=== PATIENT | male | born 1980 | race Caucasian/White ===

== ENCOUNTER 2019-03-06 10:35 | Day surgery (SDC) | payer OTHER ==
[2019-03-06 11:50] LABS: ADD MAN DIFF? NO
[2019-03-06 11:53] LABS: WHITE BLOOD COUNT 5.8 10^3/ul (4.8-10.8)
[2019-03-06 11:53] LABS: BASOPHIL # 0.1 10^3/ul (0.0-0.1); EOSINOPHILS # 0.2 10^3/ul (0.0-0.5); HEMATOCRIT 45.2 % (42.0-52.0); HEMOGLOBIN 14.9 g/dl (14.0-18.0); LYMPHOCYTES # 1.7 10^3/ul (0.8-2.9); LYMPHOCYTES % 29.9 % (15.0-51.0); MEAN CORPUSCULAR HEMOGLOBIN 27.6 pg (29.0-33.0); MEAN CORPUSCULAR VOLUME 83.7 fl (82.0-101.0); MEAN PLATELET VOLUME 9.8 fl (7.4-10.4); MONOCYTE # 0.5 10^3/ul (0.3-0.9); NEUTROPHIL # 3.3 10^3/ul (1.6-7.5); NEUTROPHILS % 57.4 % (39.0-77.0); PLATELET COUNT 282 10^3/UL (140-415); RED CELL DISTRIBUTION WIDTH 12.5 % (11.5-14.5)
[2019-03-06 12:09] LABS: ALANINE AMINOTRANSFERASE 32 IU/L (13-69); ALBUMIN 4.3 g/dl (3.3-4.9); ALBUMIN/GLOBULIN RATIO 1.26; ALKALINE PHOSPHATASE 62 IU/L (42-121); ANION GAP 9 (5-13); ASPARTATE AMINO TRANSFERASE 27 IU/L (15-46); BILIRUBIN,INDIRECT 1.3 mg/dl (0-1.1); BILIRUBIN,TOTAL 1.3 mg/dl (0.2-1.3); BLOOD UREA NITROGEN 15 mg/dl (7-20); CALCIUM 9.8 mg/dl (8.4-10.2); CARBON DIOXIDE 26 mmol/L (21-31); CHLORIDE 105 mmol/L (97-110); CREATININE 0.98 mg/dl (0.61-1.24); Estimated GFR > 60 mL/min (>60); GLUCOSE 95 mg/dl (70-220); SODIUM 140 mmol/L (135-144); TOTAL PROTEIN 7.7 g/dl (6.1-8.1)
[2019-03-06 12:25] LABS: INR 1.02; PROTIME 13.5 Sec (11.9-14.9); PT RATIO 1.1
[2019-03-06 12:26] LABS: PARTIAL THROMBOPLASTIN TIME 33.6 Sec (23.0-35.0)
[2019-03-06] MEDS ORDERED: PROPOFOL 20 ML (12:51)
[2019-03-06] MEDS ORDERED: LIDOCAINE 2% (SDV) 5 ML INJ (12:54)
[2019-03-06] MEDS ORDERED: ROCURONIUM 50 MG INJ (12:54)
[2019-03-06] MEDS ORDERED: ONDANSETRON 4 MG INJ (13:14)
[2019-03-06] MEDS ORDERED: DEXAMETHASONE 4 MG/ML 5 ML INJ (13:14)
[2019-03-06] MEDS ORDERED: NEOSTIGMINE 3 MG/3 ML SYRINGE (13:47)
[2019-03-06] MEDS ORDERED: GLYCOPYRROLATE 0.4 MG INJ (13:47)
[2019-03-06] MEDS ORDERED: ALBUTEROL 0.083% (NEB) 2.5 MG/3 ML AMP HHN (14:00)
[2019-03-06] MEDS ORDERED: EPHEDrine 25 MG/5 ML SYG IV (14:00)
[2019-03-06] MEDS ORDERED: METOCLOPRAMIDE 10 MG INJ IV (14:00)
[2019-03-06] MEDS ORDERED: ONDANSETRON 4 MG INJ IV (14:00)
[2019-03-06] MEDS ORDERED: OXYCODONE/ACETAMINOPHEN (5/325) TAB PO ×2 (14:00)
[2019-03-06] MEDS ORDERED: DIPHENHYDRAMINE 50 MG INJ IV (14:00)
[2019-03-06] MEDS ORDERED: hydrALAzine 20 MG INJ IV (14:00)
[2019-03-06] MEDS ORDERED: LABETALOL HCL 20MG INJ IV (14:00)
[2019-03-06] MEDS ORDERED: MEPERIDINE 25 MG INJ IV (14:00)
[2019-03-06] MEDS ORDERED: KETOROLAC 30 MG INJ IV (14:00)
[2019-03-06] MEDS ORDERED: FENTAnyl 50 MCG/ML VIAL IV ×3 (14:00)
== END 2019-03-06 15:30 | disposition home or self-care (01) ==
LOC: GIL 10:35 → SDS 10:35 → GIL 15:30
DX: K83.9 Disease of biliary tract, unspecified (principal); I10 Essential (primary) hypertension
CPT/HCPCS: 43261; 71045; 74330; 80053; 85025; 85610; 85730; 88305; 93005